=== PATIENT | male | born 1960 | race African-American/Black ===

== ENCOUNTER 2016-04-02 21:31 | Emergency (ER) | payer SELFPAY ==
[2016-04-02] MEDS ORDERED: Nitroglycerin 2% Ointment 1 INCH/1 GM Packet ONE (21:52)
[2016-04-02 22:03] LABS: Hematocrit 44.2 % (42.0-52.0); Red Blood Cell (RBC) Count 4.68 mill/uL (4.70-6.10); White Blood Cell (WBC) Count 7.3 thou/uL (4.8-10.8)
[2016-04-02 22:06] LABS: ALT (SGPT) 11 U/L (0-55); AST (SGOT) 17 U/L (5-34); Alkaline Phosphatase 73 U/L (40-150); Anion Gap 12 mmol/L (10-20); BUN (Urea Nitrogen) 14 mg/dL (8.4-25.7); Bilirubin, Total 0.3 mg/dL (0.2-1.2); Calc. Creatinine Clearance 0 mL/min (70-130); Calcium 9.4 mg/dL (7.8-10.44); Carbon Dioxide 23 mmol/L (22-29); Chloride 110 mmol/L (98-107); Estimated GFR-MDRD 89; Globulin 3.1 g/dL (2.4-3.5); Lipase 37 U/L (8-78); Protein, Total 7.2 g/dL (6.0-8.3)
[2016-04-02 22:12] LABS: Troponin I 0.034 ng/mL (< 0.028)
[2016-04-02 22:15] LABS: Neutrophil 39 % (42-75); Reactive Lymphocytes 1 % (0-10)
[2016-04-02 22:36] LABS: Bilirubin Negative (Negative); Blood, Urine Negative (Negative); Glucose, Urine (Dipstick) Negative (Negative); Ketone, Urine Negative (Negative); Nitrite Negative (Negative); Protein, Urine (Dipstick) Trace mg/dL (Neg-Trace)
[2016-04-02] MEDS ORDERED: Ketorolac Tromethamine 30 MG/ML VIAL ONE (22:50)
[2016-04-02] MEDS ORDERED: Lisinopril 5 MG TAB ONE (22:50)
--- NOTE | 2016-04-02 23:31 | ERRECORD ---
[facility] EMERGENCY RECORD HPI CHEST PAIN (23:09 JPIP) CHIEF COMPLAINT: Patient presents for evaluation of chest pain, ongoing, Patient presents for evaluation of left posterolateral ribs. HISTORIAN: History provided by patient. LOCATION: Symptoms are localized, most severe to left posterolateral ribs, Pain radiates, Radiation back to front. QUALITY: Pain is sharp in nature. SEVERITY: Current severity of pain rated as 8/10. TIME COURSE: Sudden onset of symptoms, Date and time of onset was yesterday at approx 1900, There has been no change in the patient's symptoms over time, are intermittent. ASSOCIATED WITH: No associated cough, No associated fever, No associated nausea, No associated palpitations, No associated shortness of breath, No associated trauma, No associated upper respiratory infection, No associated vomiting. EXACERBATED BY: Patient's condition exacerbated by deep breaths, Patient's condition exacerbated by movement, Patient's condition exacerbated by walking. RELIEVED BY: Patient's condition relieved by nothing. RISK FACTORS: Coronary artery disease risk factors, include family history, include hypertension, include smoking. HEART SCORE: Patients history is Slightly Suspicious (0), Patients ECG is normal (0), Patients age is greater than 45 and less than 65 (1), Patient has 1 or 2 risk factors (1). WELLS CRITERIA FOR PE: No clinical signs and symptoms of a DVT (0), Patient has, or is likely to have, a primary diagnosis of PE (3), Patient's heart rate is less than 100 (0), Patient has no history of immobilization within 3 days, nor any surgical history within the past 4 weeks (0), Patient has not had an objectively diagnosed PE or DVT previously (0), Patient does not have hemoptysis (0), Patient has not had treatment for malignancy within the last 6 months, nor palliative (0), Total 3. ROS (23:11 JPIP) CONSTITUTIONAL: Historian denies chills, denies fatigue, denies fever. CARDIOVASCULAR: Historian reports chest pain, denies diaphoresis, denies dyspnea on exertion, denies palpitations. RESPIRATORY: Historian denies cough, denies shortness of breath, denies sputum, denies wheezing. GI: Historian denies nausea, denies vomiting. GENITOURINARY MALE: Historian denies dysuria, denies hematuria. SKIN: Historian denies rash, denies skin changes, denies skin lesions. NOTES: All systems reviewed, negative except as described above. &a-1R&a+25V*p+0X*c4037V*c152B*c15G*c2P*p-0X&a-25V&a+1RName: Zoran Elliott : M55 MedRec: [id number] AcctNum: [id number] Prepared: TueApr 02, 2016 23:29 by Interface Page 1 of 4 pMD [facility] EMERGENCY RECORD PAST MEDICAL HISTORY (21:46 SWAL) MEDICAL HISTORY: Past medical history includes history of hypertension, Patient is noncompliant. MALE SURGICAL HISTORY: Surgical history of orthopedic surgery, RIGHT KNEE. PSYCHIATRIC HISTORY: No previous psychiatric history. SOCIAL HISTORY: Patient drinks socially, Patient denies drug use, Patient currently uses tobacco, smokes cigarettes, Patient smokes 1.5 packs per day, SINCE AGE 28. KNOWN ALLERGIES No Known Allergies CURRENT MEDICATIONS (21:47 SWAL) None VITAL SIGNS VITAL SIGNS: BP: 203/95, Pulse: 53, Resp: 24, Pain: 8, O2 sat: 94, Time: 04/02/2016 21:47. (21:47 SWAL) Temp: 99.1 (Oral), Time: 04/02/2016 21:49. (21:49 SWAL) BP: 203/100, Pulse: 51, Resp: 18, Pain: 6, O2 sat: 92 on Room Air, Time: 04/02/2016 22:06. (22:06 SIJO) BP: 183/90, Pulse: 56, Resp: 18, Pain: 5, O2 sat: 94 on Room Air, Time: 04/02/2016 22:36. (22:36 SIJO) BP: 194/98, Pulse: 63, Resp: 18, Pain: 5, O2 sat: 96 on Room Air, Time: 04/02/2016 22:55. (22:55 SIJO) PHYSICAL EXAM (23:12 JPIP) CONSTITUTIONAL: Vital Signs Reviewed, Patient afebrile, Pulse normal, Blood pressure, hypertensive, Respiratory rate normal, Patient appears, in moderate pain distress, pain present only when patient moves or takes a deep breath, Patient alert and oriented to person, place and time, Nursing notes reviewed. HEAD: Head exam included findings of head atraumatic, normocephalic. EYES: Eye exam included findings of eyelids normal to inspection, Conjunctiva normal, Sclera normal, no periorbital ecchymosis, no periorbital edema, no periorbital erythema. ENT: Pharynx exam normal, not injected, no swelling, symmetrical, Uvula exam normal, midline, no edema, Mouth exam normal, mucous membranes moist. NECK: Neck exam included findings of normal range of motion, Trachea midline, no carotid bruits, no jugular venous distention, no cervical adenopathy, no tenderness. RESPIRATORY CHEST: Respiratory exam included findings of no respiratory distress, Breath sounds clear, No wheezing, No rales, No rhonchi, Breath sounds not absent, Breath sounds not diminished, Tenderness, mild, Palpation of chest reproduces symptoms. CARDIOVASCULAR: Heart rate regular rate and rhythm, Heart sounds &a-1R&a+25V*p+0X*t3299E*c152B*c15G*c2P*p-0X&a-25V&a+1RName: Zoran Elliott : M55 MedRec: [id number] AcctNum: [id number] Prepared: TueApr 02, 2016 23:29 by Interface Page 2 of 4 pMD [facility] EMERGENCY RECORD normal, no murmurs, no rub. ABDOMEN MALE: Abdominal exam included findings of abdomen nontender, Liver normal, Spleen normal, no distension, no mass, no pulsatile masses, no peritoneal signs, no rigidity, no guarding, no rebound. BACK: Costovertebral angle tenderness, on the left. UPPER EXTREMITY: Upper extremity exam included findings of inspection normal, Range of motion normal. LOWER EXTREMITY: no edema. NEURO: Licha coma scale 15, Neuro exam findings include patient oriented to person, place and time, no focal motor deficits. SKIN: Skin exam included findings of skin warm, dry, and normal in color. LYMPHATIC: Lymphatic exam included findings of cervical nodes normal, Submandibular normal. PSYCHIATRIC: Psychiatric exam included findings of patient oriented to person place and time, Normal affect. EKG INTERPRETATION (23:17 JPIP) MONITOR STRIP: patient monitor strip interpreted by Emergency Department Physician, Monitor strip shows sinus bradycardia, with no ectopics. 12 LEAD EKG INTERPRETATION: 12 lead EKG interpreted by Emergency Department Physician at time of study, 12 lead EKG shows, sinus bradycardia, Rate (beats per minute): 52, with no ectopics, Conduction normal, ST segments normal, T waves normal, [place] normal, Other findings include:, biphasic p wave, Clinical impression:, other dysrhythmia sinus bradycardia, Probable left atrial enlargement. RADIOLOGYINTERPRETATION (23:14 JPIP) CHEST: Films of the chest show, no infiltrate, no pneumothorax, no hemothorax, no pleural effusion, cardiomegaly. CLINICAL ACCOUNT LIAISON: Preliminary review of x-rays by, ED Physician. MEDICATION ADMINISTRATION SUMMARY Drug Name: Toradol injection, Dose Ordered: 30 mg, Route: IV Push, Status: Given, Time: 22:55 04/02/2016, Drug Name: lisinopril, Dose Ordered: 20 mg, Route: Oral, Status: Given, Time: 22:54 04/02/2016, Drug Name: Nitro-Bid transdermal, Dose Ordered: 1 inch, Route: Topical, Status: Given, Time: 21:55 04/02/2016, Detailed record available in Medication Service section. DOCTOR NOTES TEXT: Patient reports he self DC'ed his antihypertensives and has not been to see a physician in "a long time". (23:15 JPIP) with >24 hours of pain, normal enzymes, nl EKG and reproducible &a-1R&a+25V*p+0X*f9819F*c152B*c15G*c2P*p-0X&a-25V&a+1RName: Zoran Elliott : M55 MedRec: [id number] AcctNum: [id number] Prepared: TueApr 02, 2016 23:29 by Interface Page 3 of 4 pMD [facility] EMERGENCY RECORD with movement and respirations doubt cardiac pain. D dimer neg doubt PE. Discussed findings with patient and need to stay on an antihypertensive medication. Precautions given. (23:19 JPIP) PROBLEM LIST No recorded problems DIAGNOSIS (22:59 JPIP) FINAL: PRIMARY: noncardiac chest pain, ADDITIONAL: Hypertension, poor medication compliance. PRESCRIPTION lisinopril: TABLET : 20 mg : ORAL : Quantity: 1 Unit: tab(s) Route: ORAL Schedule: once a day (in the morning) Dispense: 30 May substitute. Refills: No Refills . (22:55 JPIP) NOTES: No refills. (22:55 JPIP) diclofenac oral: TABLET, DELAYED RELEASE (ENTERIC COATED) : 75 mg : ORAL : Quantity: 1 Unit: tab(s) Route: ORAL Schedule: 2 times a day (with meals) Dispense: 30 May substitute. Refills: No Refills POTENTIAL CONTRAINDICATED INTERACTION: Toradol injection (ketorolac tromethamine) Override Rationale: Patient no longer on medication. (22:56 JPIP) NOTES: as needed for pain No refills. (22:56 JPIP) DISPOSITION PATIENT: Disposition Type: Discharge, Disposition: *Discharge Home, Condition: Good. (22:59 JPIP) Patient left the department. (23:23 JONES) Ricci: LAQUITA=DO Benson Joseph SIJO=SOCO Landry, Luis DICKINSONLA=SOCO Sepulveda, Lindsey &a-1R&a+25V*p+0X*f9666L*c152B*c15G*c2P*p-0X&a-25V&a+1RName: Zoran Elliott : M55 MedRec: [id number] AcctNum: [id number] Prepared: TueApr 02, 2016 23:29 by Interface Page 4 of 4 pMD MTDD
--- NOTE | 2016-04-02 23:37 | PICIS ---
[facility] EMERGENCY RECORD TRIAGE (21:34 SWAL) PATIENT: NAME: Zoran Elliott, AGE: 55, GENDER: male, : Tue1960, TIME OF GREET: TueApr 02, 2016 21:32, PREFERRED LANGUAGE: Yi, ETHNICITY: Not or , ECODE BILLING MAP: [facility], SSN: [id number], Zip Code: [address], KG WEIGHT: 83.91, PHONE: , , , PERSON ID: [id number], PAYMENT: SJ[employer] Self Pay. (21:34 SWAL) COMPLAINT: HIGH RISK COMPLAINT: Chest Pain. (21:34 SWAL) ADMISSION: URGENCY: 2 Emergent, ADMISSION SOURCE: Home, TRANSPORT: Walk-in, BED: TRIAGE. (21:34 SWAL) IMMUNIZATIONS: Flu vaccine not up to date, Tetanus not up to date, Pneumococcal vaccine not up to date. (21:46 SWAL) SIRS SCORING: Heart Rate 55-109 (0), Temp range 96.8-101.1 (0), respiratory rate less than or equal to 5 (4), Mental Status altered: no (0), Infection or Suspected Infection: No. (21:46 SWAL) TRIAGE SCREENING: Patient denies suicidal ideation, Patient denies presence of domestic violence. (21:46 SWAL) PROVIDERS: TRIAGE NURSE: Lindsey Sepulveda RN. (21:34 SWAL) KNOWN ALLERGIES No Known Allergies CURRENT MEDICATIONS (21:47 SWAL) None VITAL SIGNS VITAL SIGNS: BP: 203/95, Pulse: 53, Resp: 24, Pain: 8, O2 sat: 94, Time: 04/02/2016 21:47. (21:47 SWAL) Temp: 99.1 (Oral), Time: 04/02/2016 21:49. (21:49 SWAL) BP: 203/100, Pulse: 51, Resp: 18, Pain: 6, O2 sat: 92 on Room Air, Time: 04/02/2016 22:06. (22:06 SIJO) BP: 183/90, Pulse: 56, Resp: 18, Pain: 5, O2 sat: 94 on Room Air, Time: 04/02/2016 22:36. (22:36 SIJO) BP: 194/98, Pulse: 63, Resp: 18, Pain: 5, O2 sat: 96 on Room Air, Time: 04/02/2016 22:55. (22:55 SIJO) NURSING ASSESSMENT: CARDIOVASCULAR (21:51 SIJO) CONSTITUTIONAL: Patient arrives ambulatory, Gait steady, History obtained from patient, Patient appears, in distress due to pain, Patient cooperative, Patient alert, Oriented to person, place and time, Skin warm, Skin dry, Skin normal in color, Mucous membranes pink, Mucous membranes moist, L sided CP onset yesterday afternoon - pt states he "ate meatloaf" and has been in pain ever since. Pain increases with movement and taking a deep breath. PAIN: sharp pain, to the left chest, No pain radiating, intermittent, on a scale 0-10 patient rates pain as 8. CARDIOVASCULAR: Cardiovascular assessment findings include &a-1R&a+25V*p+0X*h4743S*c152B*c15G*c2P*p-0X&a-25V&a+1RName: Zoran Elliott : M55 MedRec: [id number] AcctNum: [id number] Prepared: TueApr 02, 2016 23:35 by Interface Page 1 of 11 pMD [facility] EMERGENCY RECORD heart rate, bradycardic, Rate 50s, Heart rhythm normal sinus, Heart sounds normal, S1, S2, Left radial pulse +3(easily palpated, considered normal), Right radial pulse +3(easily palpated, considered normal), No associated diaphoresis, no associated dizziness, no associated weakness. RESPIRATORY/CHEST: Breath sounds clear, Respiratory assessment findings include respiratory effort, shallow, d/t pain, Respirations regular, Conversing normally, Neck and chest exam findings include trachea midline, Chest expansion equal, Chest movement symmetrical, no signs of distress, no associated cough noted. NURSING ASSESSMENT: FALL RISK (22:11 SWAL) FALL RISK: Fall risk assessment findings include: no history of falls (0), No bed rest greater than 2 days (0), No use of level of consciousness altering agents with mentation or cognitive changes (0), No change in blood pressure (0), No sensory deficits (0), No impaired mobility (0), No neurologic diagnosis (0), No elimination problems (0), No confusion (0), Total score 0, No risk for fall. HENDRICH II FALL RISK: Hendrich II Fall Risk assessment findings include patient not confused, disoriented or impulsive, not symptomatic or depressed, no altered elimination, no dizziness or vertigo, male(1), no antiepileptics (anticonvulsants) administered, no Benzodiazepines administered, Total score 1, Score less than 5. Patient not high risk for falls. NURSING ASSESSMENT: SKIN (22:06 SIJO) SKIN: Skin assessment findings include skin warm, Skin dry, Skin normal in color, Notes: skin clean dry and intact - no breakdown to posterior surface. NURSING PROCEDURE: BEDSIDE SIRS TESTING (22:07 SIJO) SCORES: Heart Rate 40-54 (1), Temp range 96.8-101.1 (0), respiratory rate 12-24 (0), Latest WBC 3-14.9 (0), Mental Status altered: no (0), Infection or Suspected Infection: No. NURSING PROCEDURE: DRY CLIPPER TENDER (21:40 SWAL) PATIENT IDENTIFIER: Patient actively involved in identification process, Patient's identity verified by patient stating name, Patient's identity verified by patient stating date, Patient's identity verified by hospital ID bracelet. DRY CLIPPER TENDER: Patient placed on phototypesetting equipment monitor, Patient placed on non-invasive blood pressure monitor, with disposable blood pressure cuff applied, Patient placed on continuous pulse oximetry, Adult/pediatric oxisensor applied. NURSING PROCEDURE: DISCHARGE NOTE (23:21 SIJO) DISCHARGE: Patient discharged to home, ambulating without assistance, family driving, accompanied by //partner, Simple or moderate discharge teaching performed, MUST follow up &a-1R&a+25V*p+0X*k0385G*c152B*c15G*c2P*p-0X&a-25V&a+1RName: EarlZoran : M55 MedRec: [id number] AcctNum: [id number] Prepared: TueApr 02, 2016 23:35 by Interface Page 2 of 11 pMD [facility] EMERGENCY RECORD with a PCP - explained importance of a PCP for blood pressure medication regulation - pt verbalized understanding, Prescriptions given and instructions on side effects given, Name of prescription(s) given: lisinopril - diclofenac, Above person(s) verbalized understanding of discharge instructions and follow-up care, Patient treated and evaluated by physician, Notes: Discharge instructions reviewed and signed with good understanding. BELONGINGS: Belongings remain with patient, Valuables remain with patient. NURSING PROCEDURE: EKG CHART (21:36 SWAL) EKG: EKG indicated for complaint of chest pain, Notes: SINUS BRADYCARDIA. FOLLOW-UP: After procedure, EKG for interpretation given to Dr. BENSON. NURSING PROCEDURE: IV PATIENT IDENITIFIER: Patient actively involved in identification process, Patient's identity verified by patient stating name. (21:50 SWAL) IV SITE 1: IV established, to the left forearm, using an 18 gauge catheter, in one attempt, IV site prepped with chloroprep, Saline lock established, Flushed with normal saline (mls): 10 mls ns, Labs drawn at time of placement, labeled in the presence of the patient and sent to lab, Notes: IV STARTED - SITE C/D/I NO REDNESS NO SWELLING, USE OF EXTENTION LOCK AND IV START KIT -TOLERATED PROCEDURE WELL IV PER SISSY. (21:50 SWAL) FOLLOW-UP SITE 1: After procedure, no drainage at IV site, After procedure, no swelling at IV site, After procedure, no redness at IV site, IV discontinued, due to patient being discharged, catheter intact, Notes: IV site secured by 2X2 and tape, bleeding controlled. (23:08 SIJO) SAFETY: Side rails up, Cart/Stretcher in lowest position, Family at bedside, Call light within reach, Hospital ID band on. (21:50 SWAL) NURSING PROCEDURE: POSITIONING (22:06 SIJO) POSITIONING: Notes: Patient able and encouraged to reposition often. ORDER DETAILS Order Name: DRY CLIPPER TENDER ED, Status: Done, Time: 21:46 04/02/2016, User: MARKO, - Ordered for: DO Benson Joseph, - Entered by: DO Benson Joseph - Fri Apr 02, 2016 21:38, - Quantity: 1, Order Name: Cardiac Profile w/CKMB & Troponin - I, Status: Active, Time: 21:38 04/02/2016, User: LAQUITA, &a-1R&a+25V*p+0X*a5385E*c152B*c15G*c2P*p-0X&a-25V&a+1RName: Zoran Elliott : M55 MedRec: [id number] AcctNum: [id number] Prepared: TueApr 02, 2016 23:35 by Interface Page 3 of 11 [facility] EMERGENCY RECORD - Ordered for: DO Benson Joseph, - Entered by: DO Benson Joseph - TueApr 02, 2016 21:38, - Quantity: 1, Order Name: CBC with Differential, Status: Active, Time: 21:38 04/02/2016, User: LAQUITA, - Ordered for: DO Benson Joseph, - Entered by: DO Benson Joseph - TueApr 02, 2016 21:38, - Quantity: 1, Order Name: Comprehensive Metabolic Panel, Status: Active, Time: 21:38 04/02/2016, User: LAQUITA, - Ordered for: DO Benson Joseph, - Entered by: DO Benson Joseph - TueApr 02, 2016 21:38, - Quantity: 1, Order Name: D-Dimer (Quantitative), Status: Active, Time: 21:38 04/02/2016, User: LAQUITA, - Ordered for: DO Benson Joseph, - Entered by: DO Benson Joseph - TueApr 02, 2016 21:38, - Quantity: 1, Order Name: EKG 12 Lead in Emergency Room, Status: Active, Time: 21:34 04/02/2016, User: MARKO, - Ordered for: DO Benson Joseph, - Entered by: SOCO Sepulveda Shelley - TueApr 02, 2016 21:34, - Quantity: 1, Order Name: ERRT Pulse Oximeter ER, Status: Active, Time: 21:38 04/02/2016, User: LAQUITA, - Ordered for: DO Benson Joseph, - Entered by: DO Benson Joseph - TueApr 02, 2016 21:38, - Quantity: 1, Order Name: Lipase, Status: Active, Time: 21:38 04/02/2016, User: LAQUITA, - Ordered for: DO Benson Joseph, - Entered by: DO Benson Joseph - TueApr 02, 2016 21:38, - Quantity: 1, Order Name: SALINE LOCK, Status: Done, Time: 21:50 04/02/2016, User: JONES, - Ordered for: DO Benson Joseph, - Entered by: DO Benson Joseph - TueApr 02, 2016 21:38, - Quantity: 1, Order Name: Urinalysis w/ Rflx Microscopic, Status: Active, Time: 22:17 04/02/2016, User: LAQUITA, - Ordered for: DO Benson Joseph, - Entered by: DO Benson Joseph - TueApr 02, 2016 22:17, - Quantity: 1, Order Name: XR Chest 1 View Portable, Status: Active, Time: 21:38 04/02/2016, User: LAQUITA, - Ordered for: DO Benson Joseph, - Entered by: DO Benson Joseph - TueApr 02, 2016 21:38, - Quantity: 1. MEDICATION ADMINISTRATION SUMMARY &a-1R&a+25V*p+0X*w9402O*c152B*c15G*c2P*p-0X&a-25V&a+1RName: Zoran Elliott : M55 MedRec: [id number] AcctNum: [id number] Prepared: TueApr 02, 2016 23:35 by Interface Page 4 of 11 D [facility] EMERGENCY RECORD Drug Name: Toradol injection, Dose Ordered: 30 mg, Route: IV Push, Status: Given, Time: 22:55 04/02/2016, Drug Name: lisinopril, Dose Ordered: 20 mg, Route: Oral, Status: Given, Time: 22:54 04/02/2016, Drug Name: Nitro-Bid transdermal, Dose Ordered: 1 inch, Route: Topical, Status: Given, Time: 21:55 04/02/2016, Detailed record available in Medication Service section. MEDICATION SERVICE lisinopril: Order: lisinopril - Dose: 20 mg : Oral Schedule: Now Ordered by: Germain Benson DO Entered by: Germain Benson DO TueApr 02, 2016 22:47 , Acknowledged by: Luis Landry RN TueApr 02, 2016 22:48 Documented as given by: Luis Landry RN TueApr 02, 2016 22:54 Patient, Medication, Dose, Route and Time verified prior to administration. Amount given: 20 mg, Site: Medication administered P.O., Correct patient, time, route, dose and medication confirmed prior to administration, Patient advised of actions and side-effects prior to administration, Allergies confirmed and medications reviewed prior to administration. Nitro-Bid transdermal: Order: Nitro-Bid transdermal (nitroglycerin) - Dose: 1 inch : Topical Schedule: Now Ordered by: Germain Benson DO Entered by: Germain Benson DO TueApr 02, 2016 21:49 , Acknowledged by: Luis Landry RN TueApr 02, 2016 21:51 Documented as given by: Luis Landry RN TueApr 02, 2016 21:55 Patient, Medication, Dose, Route and Time verified prior to administration. Verbal order read back and verified, Medication applied transdermally topically, Amount given: 1 inch, Skin cleansed prior to administration, Correct patient, time, route, dose and medication confirmed prior to administration, Patient advised of actions and side-effects prior to administration, Allergies confirmed and medications reviewed prior to administration. Toradol injection: Order: Toradol injection (ketorolac tromethamine) - Dose: 30 mg : IV Push Schedule: Now Ordered by: Germain Benson DO Entered by: Germain Benson DO TueApr 02, 2016 22:46 , Acknowledged by: Luis Landry RN TueApr 02, 2016 22:48 Documented as given by: Luis Landry RN TueApr 02, 2016 22:55 Patient, Medication, Dose, Route and Time verified prior to administration. Amount given: 30 mg, IV SITE #1 IVP, initial medication, Slowly, Awake and alert- acceptable, Connections checked prior to administration, Line traced prior to administration, Catheter placement confirmed via flush prior to administration, IV site without signs or symptoms of infiltration during medication &a-1R&a+25V*p+0X*k3984M*c152B*c15G*c2P*p-0X&a-25V&a+1RName: Earl Zoran : M55 MedRec: [id number] AcctNum: [id number] Prepared: TueApr 02, 2016 23:35 by Interface Page 5 of 11 pMD [facility] EMERGENCY RECORD administration, No swelling during administration, No drainage during administration, IV flushed after administration, Correct patient, time, route, dose and medication confirmed prior to administration, Patient advised of actions and side-effects prior to administration, Allergies confirmed and medications reviewed prior to administration. HPI CHEST PAIN (23:09 JPIP) CHIEF COMPLAINT: Patient presents for evaluation of chest pain, ongoing, Patient presents for evaluation of left posterolateral ribs. HISTORIAN: History provided by patient. LOCATION: Symptoms are localized, most severe to left posterolateral ribs, Pain radiates, Radiation back to front. QUALITY: Pain is sharp in nature. SEVERITY: Current severity of pain rated as 8/10. TIME COURSE: Sudden onset of symptoms, Date and time of onset was yesterday at approx 1900, There has been no change in the patient's symptoms over time, are intermittent. ASSOCIATED WITH: No associated cough, No associated fever, No associated nausea, No associated palpitations, No associated shortness of breath, No associated trauma, No associated upper respiratory infection, No associated vomiting. EXACERBATED BY: Patient's condition exacerbated by deep breaths, Patient's condition exacerbated by movement, Patient's condition exacerbated by walking. RELIEVED BY: Patient's condition relieved by nothing. RISK FACTORS: Coronary artery disease risk factors, include family history, include hypertension, include smoking. HEART SCORE: Patients history is Slightly Suspicious (0), Patients ECG is normal (0), Patients age is greater than 45 and less than 65 (1), Patient has 1 or 2 risk factors (1). WELLS CRITERIA FOR PE: No clinical signs and symptoms of a DVT (0), Patient has, or is likely to have, a primary diagnosis of PE (3), Patient's heart rate is less than 100 (0), Patient has no history of immobilization within 3 days, nor any surgical history within the past 4 weeks (0), Patient has not had an objectively diagnosed PE or DVT previously (0), Patient does not have hemoptysis (0), Patient has not had treatment for malignancy within the last 6 months, nor palliative (0), Total 3. ROS (23:11 JPIP) CONSTITUTIONAL: Historian denies chills, denies fatigue, denies fever. CARDIOVASCULAR: Historian reports chest pain, denies diaphoresis, denies dyspnea on exertion, denies palpitations. RESPIRATORY: Historian denies cough, denies shortness of breath, denies sputum, denies wheezing. &a-1R&a+25V*p+0X*e7510U*c152B*c15G*c2P*p-0X&a-25V&a+1RName: Zoran Elliott : M55 MedRec: [id number] AcctNum: [id number] Prepared: TueApr 02, 2016 23:35 by Interface Page 6 of 11 pMD [facility] EMERGENCY RECORD GI: Historian denies nausea, denies vomiting. GENITOURINARY MALE: Historian denies dysuria, denies hematuria. SKIN: Historian denies rash, denies skin changes, denies skin lesions. NOTES: All systems reviewed, negative except as described above. PAST MEDICAL HISTORY (21:46 SWNY) MEDICAL HISTORY: Past medical history includes history of hypertension, Patient is noncompliant. MALE SURGICAL HISTORY: Surgical history of orthopedic surgery, RIGHT KNEE. PSYCHIATRIC HISTORY: No previous psychiatric history. SOCIAL HISTORY: Patient drinks socially, Patient denies drug use, Patient currently uses tobacco, smokes cigarettes, Patient smokes 1.5 packs per day, SINCE AGE 28. PHYSICAL EXAM (23:12 JP) CONSTITUTIONAL: Vital Signs Reviewed, Patient afebrile, Pulse normal, Blood pressure, hypertensive, Respiratory rate normal, Patient appears, in moderate pain distress, pain present only when patient moves or takes a deep breath, Patient alert and oriented to person, place and time, Nursing notes reviewed. HEAD: Head exam included findings of head atraumatic, normocephalic. EYES: Eye exam included findings of eyelids normal to inspection, Conjunctiva normal, Sclera normal, no periorbital ecchymosis, no periorbital edema, no periorbital erythema. ENT: Pharynx exam normal, not injected, no swelling, symmetrical, Uvula exam normal, midline, no edema, Mouth exam normal, mucous membranes moist. NECK: Neck exam included findings of normal range of motion, Trachea midline, no carotid bruits, no jugular venous distention, no cervical adenopathy, no tenderness. RESPIRATORY CHEST: Respiratory exam included findings of no respiratory distress, Breath sounds clear, No wheezing, No rales, No rhonchi, Breath sounds not absent, Breath sounds not diminished, Tenderness, mild, Palpation of chest reproduces symptoms. CARDIOVASCULAR: Heart rate regular rate and rhythm, Heart sounds normal, no murmurs, no rub. ABDOMEN MALE: Abdominal exam included findings of abdomen nontender, Liver normal, Spleen normal, no distension, no mass, no pulsatile masses, no peritoneal signs, no rigidity, no guarding, no rebound. BACK: Costovertebral angle tenderness, on the left. UPPER EXTREMITY: Upper extremity exam included findings of inspection normal, Range of motion normal. LOWER EXTREMITY: no edema. NEURO: Lowell coma scale 15, Neuro exam findings include patient &a-1R&a+25V*p+0X*u5828I*c152B*c15G*c2P*p-0X&a-25V&a+1RName: Zoran Elliott : M55 MedRec: [id number] AcctNum: [id number] Prepared: TueApr 02, 2016 23:35 by Interface Page 7 of 11 pMD [facility] EMERGENCY RECORD oriented to person, place and time, no focal motor deficits. SKIN: Skin exam included findings of skin warm, dry, and normal in color. LYMPHATIC: Lymphatic exam included findings of cervical nodes normal, Submandibular normal. PSYCHIATRIC: Psychiatric exam included findings of patient oriented to person place and time, Normal affect. LAB INTERPRETATION (23:14 JPIP) INTERPRETATION: I reviewed the lab results, All labs normal except as noted below, CBC normal, Chemistry abnormal, Sodium normal, Chloride elevated, Cardiac enzymes abnormal, CK-MB normal, Troponin elevated, trop 0.034, Liver functions normal, Lipase normal, Urinalysis normal, D-dimer negative. EVENTS TRANSFER: Triage to Emergency Triage. (TueApr 02, 2016 21:34 SWAL) Emergency Triage to Emergency Room -01. (21:50 SIJO) Removed from Emergency Emergency Room -01. (23:23 SIJO) RADIOLOGYINTERPRETATION (23:14 JPIP) CHEST: Films of the chest show, no infiltrate, no pneumothorax, no hemothorax, no pleural effusion, cardiomegaly. ACCOUNTS PAYABLE TECHNICIAN: Preliminary review of x-rays by, ED Physician. EKG INTERPRETATION (23:17 JPIP) MONITOR STRIP: phototypesetting equipment monitor strip interpreted by Emergency Department Physician, Monitor strip shows sinus bradycardia, with no ectopics. 12 LEAD EKG INTERPRETATION: 12 lead EKG interpreted by Emergency Department Physician at time of study, 12 lead EKG shows, sinus bradycardia, Rate (beats per minute): 52, with no ectopics, Conduction normal, ST segments normal, T waves normal, Yoder normal, Other findings include:, biphasic p wave, Clinical impression:, other dysrhythmia sinus bradycardia, Probable left atrial enlargement. O2SAT INTERPRETATION (23:16 JPIP) O2SAT: Continuous pulse oximetry, Oxygen saturation 96%, on room air, Oxygen saturation interpretation: Normal, No intervention required. DOCTOR NOTES TEXT: Patient reports he self DC'ed his antihypertensives and has not been to see a physician in "a long time". (23:15 JPIP) with >24 hours of pain, normal enzymes, nl EKG and reproducible with movement and respirations doubt cardiac pain. D dimer neg doubt PE. Discussed findings with patient and need to stay on an &a-1R&a+25V*p+0X*t9830K*c152B*c15G*c2P*p-0X&a-25V&a+1RName: Zoran Elliott : M55 MedRec: [id number] AcctNum: [id number] Prepared: TueApr 02, 2016 23:35 by Interface Page 8 of 11 pMD [facility] EMERGENCY RECORD antihypertensive medication. Precautions given. (23:19 JPIP) PROBLEM LIST No recorded problems DIAGNOSIS (22:59 JPIP) FINAL: PRIMARY: noncardiac chest pain, ADDITIONAL: Hypertension, poor medication compliance. DISPOSITION PATIENT: Disposition Type: Discharge, Disposition: *Discharge Home, Condition: Good. (22:59 JPIP) Patient left the department. (23:23 SIJO) INSTRUCTION (22:58 JPIP) DISCHARGE: MUSCLE SPASM, HYPERTENSION, ESTABLISHED, OUT OF CONTROL. SPECIAL: Do not take motrin/ibuprofen/alleve/naprosyn while taking the diclofenac Follow up with Primary Care Physician within 72 hours Return to the Emergency Department for increased symptoms problems or concerns. PRESCRIPTION lisinopril: TABLET : 20 mg : ORAL : Quantity: 1 Unit: tab(s) Route: ORAL Schedule: once a day (in the morning) Dispense: 30 May substitute. Refills: No Refills . (22:55 JPIP) NOTES: No refills. (22:55 JPIP) diclofenac oral: TABLET, DELAYED RELEASE (ENTERIC COATED) : 75 mg : ORAL : Quantity: 1 Unit: tab(s) Route: ORAL Schedule: 2 times a day (with meals) Dispense: 30 May substitute. Refills: No Refills POTENTIAL CONTRAINDICATED INTERACTION: Toradol injection (ketorolac tromethamine) Override Rationale: Patient no longer on medication. (22:56 JPIP) NOTES: as needed for pain No refills. (22:56 JPIP) IMAGING *EKG: Image captured from scanner. (23:24 SIJO) *DISCHARGE INSTRUCTIONS RECEIPT: Image captured from scanner. (23:25 SIJO) *SUPPLY CHARGE SHEET: Image captured from scanner. (23:25 SIJO) RESULTS LABORATORY: Cardiac Profile w/CKMB & TropI Collection DT: TueApr 02, 2016 21:48, CKMB 1.0 ng/mL, Range (0-6.6), *Troponin I 0.034 - H ng/mL, Range (< 0.028), Reference Range &a-1R&a+25V*p+0X*q3425H*c152B*c15G*c2P*p-0X&a-25V&a+1RName: Zoran Elliott : M55 MedRec: [id number] AcctNum: [id number] Prepared: TueApr 02, 2016 23:35 by Interface Page 9 of 11 pMD [facility] EMERGENCY RECORD , 0.00 - 0.028 ng/mL Negative 0.029 - 0.29 ng/mL , Indeterminate Greater or Equal to 0.3 ng/mL Strongly suggests NE , . (22:16 JPIP) Lipase Collection DT: TueApr 02, 2016 21:48, Lipase 37 U/L, Range (8-78). (22:16 JPIP) Comprehensive Metabolic Panel Collection DT: TueApr 02, 2016 21:48, Sodium 141 mmol/L, Range (136-145), Potassium 4.0 mmol/L, Range (3.5-5.1), *Chloride 110 - H mmol/L, Range (98-107), Carbon Dioxide 23 mmol/L, Range (22-29), Anion Gap 12 mmol/L, Range (10-20), BUN (Urea Nitrogen) 14 mg/dL, Range (8.4-25.7), Creatinine 1.04 mg/dL, Range (0.7-1.3), Estimated GFR-MDRD 89 , Reference Range for Estimated GFR: Greater than 90, mL/min/1.73 m2 NOTE: The MDRD equation has not been validated for use, with the elderly (over 70 years of age), women, patients with, serious comorbid condition or persons with extremes of body size, muscle, mass, or nutritional status. , Glucose 93 mg/dL, Range (70-105), Calcium 9.4 mg/dL, Range (7.8-10.44), Bilirubin, Total 0.3 mg/dL, Range (0.2-1.2), Protein, Total 7.2 g/dL, Range (6.0-8.3), NOTE: Plasma values are generally 0.3 to 0.5 g/dL higher than serum values, due to the presence of fibrinogen. , Albumin 4.1 g/dL, Range (3.5-5.0), Globulin 3.1 g/dL, Range (2.4-3.5), Alb/Glob Ratio 1.3 g/dL, Range (1.2-2.2), Alkaline Phosphatase 73 U/L, Range (40-150), AST (SGOT) 17 U/L, Range (5-34), ALT (SGPT) 11 U/L, Range (0-55). (22:16 [facility]) CBC with Differential Collection DT: TueApr 02, 2016 21:48, White Blood Cell (WBC) Count 7.3 thou/uL, Range (4.8-10.8), *Red Blood Cell (RBC) Count 4.68 - L mill/uL, Range (4.70-6.10), Hemoglobin 14.9 g/dL, Range (14.0-18.0), Hematocrit 44.2 %, Range (42.0-52.0), *Mean Corpuscular Volume 94.3 - H fl, Range (80.0-94.0), *Mean Corpuscular Hemoglobin 31.7 - H pg, Range (27.0-31.0), Mean Corpuscular HGB CONC 33.6 g/dL, Range (32.0-36.0), *RBC Distribution Width 11.3 - L %, Range (11.5-14.5), Platelet Count 176 thou/uL, Range (130-400), Mean Platelet Volume 9.0 fL, Range (7.4-10.4). (22:16 [facility]) D-Dimer (Quantitative) Collection DT: TueApr 02, 2016 21:48, *D-Dimer Test Less than 0.27 - L *mcg/mL, Range (0.27-0.43), * Reference Range Units: mcg/mL of fibrinogen equivalent, units(FEU) &a-1R&a+25V*p+0X*u7395L*c152B*c15G*c2P*p-0X&a-25V&a+1RName: Zoran Elliott : M55 MedRec: [id number] AcctNum: [id number] Prepared: TueApr 02, 2016 23:35 by Interface Page 10 of 11 [facility] EMERGENCY RECORD Based upon a retrospective study of [facility] patients in July 2005, a result of Less than 0.44 mcg/mL FEU is, predictive of the absence of a DVT or PE. . (22:16 [facility]) CBC with Differential Collection DT: TueApr 02, 2016 21:48, White Blood Cell (WBC) Count 7.3 thou/uL, Range (4.8-10.8), *Red Blood Cell (RBC) Count 4.68 - L mill/uL, Range (4.70-6.10), Hemoglobin 14.9 g/dL, Range (14.0-18.0), Hematocrit 44.2 %, Range (42.0-52.0), *Mean Corpuscular Volume 94.3 - H fl, Range (80.0-94.0), *Mean Corpuscular Hemoglobin 31.7 - H pg, Range (27.0-31.0), Mean Corpuscular HGB CONC 33.6 g/dL, Range (32.0-36.0), *RBC Distribution Width 11.3 - L %, Range (11.5-14.5), Platelet Count 176 thou/uL, Range (130-400), Mean Platelet Volume 9.0 fL, Range (7.4-10.4), *Neutrophil 39 - L %, Range (42-75), *Lymphocytes 53 - H %, Range (21-51), Reactive Lymphocytes 1 %, Range (0-10), Monocytes 3 %, Range (0-10), Eosinophils 3 %, Range (0-10), Basophils 1 %, Range (0-2), PLT Morphology Comment Appears Adequate , RBC Morphology Normal . (22:20 [facility]) Urinalysis w/ Rflx Microscopic Collection DT: TueApr 02, 2016 22:32, Color Yellow , Range (Yellow), Clarity Clear , Range (Clear), Specific [place], Urine 1.020 , Range (1.005-1.030), pH, Urine 7.5 , Range (5.0-9.0), Leukocyte Negative , Range (Negative), Nitrite Negative , Range (Negative), Protein, Urine (Dipstick) Trace mg/dL, Range (Neg-Trace), Glucose, Urine (Dipstick) Negative mg/dL, Range (Negative), Ketone, Urine Negative mg/dL, Range (Negative), Urobilinogen 1.0 mg/dL, Range (0.2-1.0), Bilirubin Negative , Range (Negative), Blood, Urine Negative , Range (Negative). (22:45 [facility]) Ricci: LAQUITA=DO Benson Joseph SIJO=SOCO Landry, Luis ZHU=SOCO Sepulveda, Lindsey &a-1R&a+25V*p+0X*q8237I*c152B*c15G*c2P*p-0X&a-25V&a+1RName: Zoran Elliott : M55 MedRec: [id number] AcctNum: [id number] Prepared: TueApr 02, 2016 23:35 by Interface Page 11 of 11 pMD MTDD
--- NOTE | 2016-04-02 23:45 | RAD ---
PORTABLE CHEST 04/02/16 An AP portable film at 2144 shows mild cardiomegaly. There is no vascular congestion or edema. A becky ear infiltrate is seen in the lingular region of the lung which could be subsegmental atelectasis as it is somewhat linear. Pneumonia is remotely possible. The right lung is clear. The trachea is midl ine. IMPRESSION: 1. Mild cardiomegaly. 2. Faint linear infiltrate in the region of the lingula. POS: HOME
== END 2016-04-02 23:17 | disposition home or self-care (01) ==
LOC: BURERS 21:31
DX: R07.89 Other chest pain (principal); I10 Essential (primary) hypertension; F17.210 Nicotine dependence, cigarettes, uncomplicated
CPT/HCPCS: 71010; 80053; 81003; 82553; 83690; 84484; 85025; 85379; 93005; 94760; 96374; J1885

== ENCOUNTER 2018-08-10 08:36 | Outpatient (CLI) | payer BC ==
--- NOTE | 2018-08-10 10:54 | ULT ---
COMPLETE ABDOMEN ULTRASOUND INDICATION: Hepatomegaly TECHNIQUE: Grayscale, color Doppler and spectral Doppler were obtained of the abdomen. COMPARISON: None FINDINGS: Liver: Normal. Main portal vein: Patent with appropriate hepatopedal flow Pancreas: Obscured by overlying bowel gas. Gallbladder: Normal. No sonographic Herndon's sign reported. Right kidney: The right kidney measured 10.3 x 5.2 x 4.7 cm. No focal renal lesion or hydronephrosis is evident. Left kidney: The left kidney measured 8.7 x 5.0 x 4.1 cm. No focal renal lesion or hydronephrosis is demonstrated. Aorta and IVC: The aorta is largely obscured. Visualized aspects of the IVC appear within normal limi ts. Spleen: 8.16 cm in length. No focal splenic lesion is evident. Free fluid: None. IMPRESSION: 1. Normal sonographic evaluation of the abdomen
== END 2018-08-10 08:37 | disposition home or self-care (01) ==
LOC: BURULT 08:36
PROVIDERS: ATTEND Physician Assistant
DX: R16.0 Hepatomegaly, not elsewhere classified (principal)
CPT/HCPCS: 76700

== ENCOUNTER 2020-05-27 20:16 | Emergency (ER) | payer BC ==
[2020-05-27] MEDS ORDERED: Nitroglycerin 0.4 MG TAB 1 EACH ONE ×2 (20:35→20:41)
[2020-05-27] MEDS ORDERED: Aspirin Chewable 81 MG TAB ONE (20:35)
[2020-05-27 20:42] LABS: #Basophils 0.1 thou/uL (0.0-0.2); #Eosinphils 0.2 thou/uL (0.0-0.7); #Lymphocytes 3.9 thou/uL (1.20-3.40); #Monocytes 0.8 thou/uL (0.11-0.59); %Basophils 1.4 % (0.0-1.0); %Eosinophils 2.6 % (0.0-10.0); %Lymphocytes 48.4 % (21.0-51.0); %Monocytes 10.1 % (0.0-10.0); %Neutrophils 37.6 % (42.0-75.0); Hemoglobin 15.4 g/dL (14.0-18.0); Mean Corpuscular HGB CONC 33.7 g/dL (32.0-36.0); Mean Corpuscular Hemoglobin 32.2 pg (27.0-31.0); Mean Corpuscular Volume 95.5 fL (78.0-98.0); Mean Platelet Volume 10.5 fL (7.4-10.4); Platelet Count 161 thou/uL (130-400); RBC Distribution Width 11.7 % (11.5-14.5); Red Blood Cell (RBC) Count 4.79 mill/uL (4.70-6.10)
[2020-05-27] MEDS ORDERED: Ondansetron PF 4 MG/2 ML Vial ONE (20:49)
[2020-05-27 20:58] LABS: ALT (SGPT) 12 U/L (8-55); AST (SGOT) 16 U/L (5-34); Albumin 4.1 g/dL (3.4-4.8); Alkaline Phosphatase 85 U/L (40-110); Anion Gap 14 mmol/L (10-20); BUN (Urea Nitrogen) 14 mg/dL (8.4-25.7); Bilirubin, Total 0.2 mg/dL (0.2-1.2); Calc. Creatinine Clearance 0 mL/min (70-130); Carbon Dioxide 25 mmol/L (23-31); Chloride 107 mmol/L (98-107); Globulin 2.7 g/dL (2.4-3.5); Glucose 93 mg/dL (80-115); Lipase 52 U/L (8-78); Potassium 4.2 mmol/L (3.5-5.1); Protein, Total 6.8 g/dL (5.8-8.1); Sodium 142 mmol/L (136-145)
[2020-05-27] MEDS ORDERED: Nitroglycerin 2% Ointment 1 INCH/1 GM Packet ONE (21:14)
[2020-05-27 21:15] LABS: CKMB 0.7 ng/mL (0-6.6)
[2020-05-27] MEDS ORDERED: Enoxaparin Sodium 100 MG/ML SYRINGE ONE (21:15)
[2020-05-27] MEDS ORDERED: Acetaminophen 500 MG TAB ONE ×2 (21:26→21:27)
== END 2020-05-27 23:06 | disposition short-term general hospital (02) ==
LOC: BURERS 20:16
DX: I20.0 Unstable angina (principal); R00.1 Bradycardia, unspecified; I10 Essential (primary) hypertension; F17.210 Nicotine dependence, cigarettes, uncomplicated
CPT/HCPCS: 71045; 80053; 82553; 83690; 84484; 85025; 93005; 94760; 96372; 96374; J1650; J2405

== ENCOUNTER 2022-11-23 08:33 | Outpatient (CLI) | payer OTHER ==
[2022-11-23 08:54] LABS: #Basophils 0.1 thou/uL (0.0-0.2); #Eosinphils 0.1 thou/uL (0.0-0.7); #Lymphocytes 3.3 thou/uL (1.20-3.40); #Monocytes 0.5 thou/uL (0.11-0.59); #Neutrophils 2.7 thou/uL (1.40-6.50); %Basophils 1.4 % (0.0-1.0); %Eosinophils 1.3 % (0.0-10.0); %Lymphocytes 49.7 % (21.0-51.0); %Monocytes 7.2 % (0.0-10.0); %Neutrophils 40.4 % (42.0-75.0); Hematocrit 46.3 % (42.0-52.0); Hemoglobin 15.4 g/dL (14.0-18.0); Mean Corpuscular HGB CONC 33.3 g/dL (32.0-36.0); Mean Corpuscular Hemoglobin 30.5 pg (27.0-31.0); Mean Corpuscular Volume 91.7 fl (78.0-98.0); Mean Platelet Volume 8.1 fL (7.4-10.4); Platelet Count 179 10x3/uL (130-400); RBC Distribution Width 11.3 % (11.5-14.5); Red Blood Cell (RBC) Count 5.05 mill/uL (4.70-6.10); White Blood Cell (WBC) Count 6.7 10x3/uL (4.8-10.8)
[2022-11-23 09:44] LABS: ALT (SGPT) 11 U/L (8-55); AST (SGOT) 15 U/L (5-34); Albumin 4.3 g/dL (3.4-4.8); Alkaline Phosphatase 75 U/L (40-110); Anion Gap 14 mmol/L (10-20); BUN (Urea Nitrogen) 9 mg/dL (8.4-25.7); Bilirubin, Total 0.6 mg/dL (0.2-1.2); Calc. Creatinine Clearance 0 mL/min (70-130); Calcium 8.7 mg/dL (7.8-10.44); Carbon Dioxide 22 mmol/L (23-31); Cardiac Risk 3.3 (Less than 4.5); Chloride 110 mmol/L (98-107); Cholesterol 153 mg/dl (< 200 Desired); Estimated GFR 80; Glucose 99 mg/dL (80-115); HDL Cholesterol 46 mg/dL (>60 Neg Risk); LDL Cholesterol, Calculated 94 mg/dL; Potassium 3.9 mmol/L (3.5-5.1); Protein, Total 7.3 g/dL (5.8-8.1); Sodium 142 mmol/L (136-145); Triglycerides 66 mg/dL (Less than 150)
== END 2022-11-23 08:34 | disposition home or self-care (01) ==
LOC: BURLAB 08:33
PROVIDERS: ATTEND Physician Assistant
DX: I10 Essential (primary) hypertension (principal)
CPT/HCPCS: 36415; 80050; 80061

== ENCOUNTER 2025-01-09 06:20 | Emergency (ER) | payer BC, SELFPAY ==
[2025-01-09] MEDS ORDERED: Nitroglycerin 0.4 MG TAB 1 EACH ONE (06:29)
[2025-01-09] MEDS ORDERED: Aspirin Chewable 81 MG TAB ONE (06:29)
[2025-01-09] MEDS ORDERED: Heparin 10,000 UNITS/ 10 ML VIAL ONE (06:35)
[2025-01-09] MEDS ORDERED: Nitroglycerin 50 MG/250 ML BOT 250 ML ONE (06:47)
[2025-01-09 06:57] LABS: Hematocrit 43.5 % (42.0-52.0); Hemoglobin 16.5 g/dL (14.0-18.0); Mean Corpuscular Hemoglobin 31.8 pg (27.0-31.0); Mean Corpuscular Volume 83.6 fl (78.0-98.0); Platelet Count 218 10x3/uL (130-400); Red Blood Cell (RBC) Count 5.20 mill/uL (4.70-6.10); White Blood Cell (WBC) Count 10.2 10x3/uL (4.8-10.8)
[2025-01-09 07:00] LABS: ALT (SGPT) Less than 7 U/L (Less than 45); AST (SGOT) 17 U/L (11-34); Albumin 4.3 g/dL (3.1-4.5); Alkaline Phosphatase 90 U/L (40-110); Anion Gap 18 mmol/L (10-20); BUN (Urea Nitrogen) 17 mg/dL (8.4-25.7); Bilirubin, Total 0.4 mg/dL (0.3-1.2); Calc. Creatinine Clearance 0 mL/min (70-130); Calcium 8.9 mg/dL (7.8-10.44); Carbon Dioxide 19 mmol/L (23-31); Chloride 109 mmol/L (98-107); Globulin 3.6 g/dL (2.4-3.5); Glucose 134 mg/dL (80-115); Potassium 3.8 mmol/L (3.5-5.1); Sodium 142 mmol/L (136-145)
[2025-01-09 07:01] LABS: Troponin I 0.028 ng/mL (< 0.028)
[2025-01-09 07:05] LABS: MDiff Complete? YES; Platelet Adequacy Comment Appears Adequate
== END 2025-01-09 07:17 | disposition short-term general hospital (02) ==
LOC: BURERS 06:20
DX: I21.4 Non-ST elevation (NSTEMI) myocardial infarction (principal); I10 Essential (primary) hypertension; F17.210 Nicotine dependence, cigarettes, uncomplicated; Z55.6 Problems related to health literacy
CPT/HCPCS: 71045; 80053; 83880; 84484; 85025; 93005; 94760; 96374; 96375; J1644